=== PATIENT | female | born 1995 | race Two or more races ===

== ENCOUNTER 2020-10-10 20:09 | Emergency (ER) | payer SELFPAY ==
[~2020-10-10] VITALS: Ht 149.9 cm; Wt 88.6 kg
[2020-10-10 20:56] VITALS: BP 145/99
--- NOTE | 2020-10-10 21:41 | PHYS DOC ---
Past Medical History Past Medical History: UTI Past Surgical History: No Surgical History Smoking Status: Never Smoker Alcohol Use: Occasionally General Adult EDM: Chief Complaint: BACK PAIN OR INJURY HPI: HPI: Patient is a 25 year old female presenting to the ED today complaining of 9 out of 10 right hip pain, right low back pain, pain radiates to the right lower extremity, patient states this is a chronic pain but got worse in the last 2 days. Patient denies any trauma. Patient is not giving me much information. When asked patient if it is a chronic issue has she had any imaging done, she stated she wants to leave she states she wants her paperwork and go to a facility where they have all her information. Inquired from patient if anyone has done anything wrong in our ED to make her want to leave right now. She states she wants to go somewhere where people know her and she does not have to give this much information. Review of Systems: Review of Systems: Constitutional: Denies fever or chills. [] : Denies dysuria. [] Musculoskeletal: Reports low back pain to the right, right hip pain, pain radiating to the right lower extremity. Integument: Denies rash. [] Neurologic: Denies headache, focal weakness or sensory changes. [] Psychiatric: Denies depression or anxiety. [] Heart Score: Risk Factors: Risk Factors: DM, Current or recent (<one month) smoker, HTN, HLP, family history of CAD, obesity. Risk Scores: Score 0 - 3: 2.5% MACE over next 6 weeks - Discharge Home Score 4 - 6: 20.3% MACE over next 6 weeks - Admit for Clinical Observation Score 7 - 10: 72.7% MACE over next 6 weeks - Early Invasive Strategies Allergies: Allergies: Allergies Coded Allergies Type Severity Reaction Last Updated Verified No Known Drug Allergies 10/10/20 No Physical Exam: PE: Constitutional: Well developed, well nourished, no acute distress, non-toxic appearance. [] Abdomen: Bowel sounds normal, soft, no tenderness, no masses, no pulsatile masses. [] Skin: Warm, dry, no erythema, no rash. [] Back: Patient is in standing position favoring the right lower extremity. Tenderness on palpation diffusely to the right lumbar spine and worse on the right SI joint, no midline lumbar spine tenderness, no CVA tenderness. [] Extremities: Tenderness diffusely to the right lateral hip, no cyanosis, no clubbing, ROM intact, no edema. [] Neurologic: Alert and oriented X 3, normal motor function, normal sensory function, no focal deficits noted. [] Psychologic: Affect normal, judgement normal, mood normal. [] Current Patient Data: Labs: Laboratory Tests Test 10/10/20 20:33 POC Urine HCG, Qualitative Hcg negative (Negative) Vital Signs: Vital Signs Date Time Temp Pulse Resp B/P (MAP) Pulse Ox O2 Delivery O2 Flow Rate FiO2 10/10/20 20:56 98.3 93 24 145/99 (114) 96 Room Air 98.3 EKG: EKG: [] Radiology/Procedures: Radiology/Procedures: [] Course & Med Decision Making: Course & Med Decision Making Pertinent Labs and Imaging studies reviewed. (See chart for details) This is a 25-year-old female patient presenting to the ED today with chronic right hip and right low back pain radiating to the right lower extremity. As i was talking to the patient, she decided she wants to leave to go to a facility that knows her and she does not have to talk as much. Kit Disclaimer: [employer] Disclaimer: This electronic medical record was generated, in whole or in part, using a voice recognition dictation system. Departure Departure Impression: Primary Impression: Back pain Qualified Codes: M54.5 - Low back pain Additional Impression: Hip pain, right Disposition: 01 DC HOME SELF CARE/HOMELESS Condition: STABLE Referrals: NO PCP (PCP) Patient Instructions: Back Pain, Adult, [id number] DHIRAJ LO APRN Oct 10, 2020 21:40
== END 2020-10-10 22:00 | disposition home or self-care (01) ==
LOC: ER 20:09
DX: M54.5 Low back pain (principal); M25.551 Pain in right hip; M79.604 Pain in right leg; G89.29 Other chronic pain
CPT/HCPCS: 81025; 99282